=== PATIENT | male | born 1990 | race Caucasian/White ===

== ENCOUNTER 2017-11-21 18:06 | Emergency (ER) | payer OTHER ==
[~2017-11-21] VITALS: Ht 180.3 cm; Wt 93.0 kg
--- NOTE | ~2017-11-21 | EKG ---
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
[2017-11-21 18:49] LABS: ABSOLUTE NEUTROPHILS 4.3 thou/uL (1.4-8.2); BASOPHILS 0.9 % (0.0-2.0); EOSINOPHILS 1.8 % (0.0-3.0); HEMATOCRIT 46.1 % (42.0-52.0); HEMOGLOBIN 16.8 gm/dL (14.0-18.0); LYMPHOCYTES 18.7 % (24.0-44.0); MCH 30.7 pg (26.0-34.0); MCHC 36.4 g/dL (28.0-37.0); MCV 84.3 fL (80.0-100.0); MONOCYTES 6.7 % (1.0-8.0); PLATELET COUNT 177 thou/uL (150-400); POLYS 71.9 % (36.0-66.0); RBC 5.46 mil/uL (4.50-6.00); RDW 13.2 % (10.5-14.5)
[2017-11-21 19:02] LABS: CALCIUM 9.1 mg/dL (8.5-10.1); CREATININE 1.3 mg/dL (0.7-1.3); POTASSIUM 3.1 mmol/L (3.5-5.1)
[2017-11-21 19:08] LABS: ALBUMIN 4.4 g/dL (3.4-5.0); TOTAL BILIRUBIN 0.7 mg/dL (<0.1-1.0); TOTAL PROTEIN 7.8 g/dL (6.4-8.2)
[2017-11-21 20:27] VITALS: BP 140/76
== END 2017-11-21 20:25 | disposition home or self-care (01) ==
LOC: ER 18:06
PROVIDERS: Emergency Medicine
DX: F41.9 Anxiety disorder, unspecified (principal); R42 Dizziness and giddiness; F12.10 Cannabis abuse, uncomplicated; F17.210 Nicotine dependence, cigarettes, uncomplicated

== ENCOUNTER 2018-11-17 14:00 | Emergency (ER) | payer OTHER ==
[~2018-11-17] VITALS: Ht 182.9 cm; Wt 97.5 kg
[2018-11-17 15:54] LABS: HEMATOCRIT 51.8 % (42.0-52.0); HEMOGLOBIN 17.9 gm/dL (14.0-18.0); MCH 30.2 pg (26.0-34.0); MCHC 34.5 g/dL (28.0-37.0); MCV 87.5 fL (80.0-100.0); RBC 5.91 mil/uL (4.50-6.00); RDW 13.4 % (10.5-14.5); WBC 11.4 thou/uL (4.0-11.0)
[2018-11-17 16:01] LABS: CALCIUM 9.6 mg/dL (8.5-10.1); CREATININE 1.2 mg/dL (0.7-1.3); POTASSIUM 3.4 mmol/L (3.5-5.1)
[2018-11-17] MEDS ORDERED: PREDNISONE 20 M20 MG PO (17:30)
[2018-11-17] MEDS ORDERED: VENTOLIN HFA 1818 GM INH (17:30)
[2018-11-17 17:44] VITALS: BP 144/91
== END 2018-11-17 17:47 | disposition home or self-care (01) ==
LOC: ER 14:00
PROVIDERS: Emergency Medicine Emergency Medical Services
DX: R06.02 Shortness of breath (principal); F41.9 Anxiety disorder, unspecified; F17.210 Nicotine dependence, cigarettes, uncomplicated; Z90.49 Acquired absence of other specified parts of digestive tract